=== PATIENT | male | born 1965 | race Caucasian/White ===

== ENCOUNTER 2025-07-02 12:32 | Emergency (ER) | payer OTHER, SELFPAY ==
[2025-07-02] VITALS (15 sets, daily range): BP systolic 107–133; BP diastolic 70–83; PULSE 77–88; TEMP 36.7; O2SAT 92–94; BMI 23.0
--- NOTE | 2025-07-02 12:53 | CT_ITS ---
The [address] [address] Patient Name: AGUSTIN PETTIT MRN: [id number] date: 1965 Sex: M Assigned Patient Location: ED.MAIN Current Patient Location: ED.MAIN Accession/Order Number: [id number] Exam Date: 07/02/2025 13:45 Report Date: 07/02/2025 14:04 At the request of: ALL LOGAN MD Procedure: CT head/brain wo con CT BRAIN WITHOUT CONTRAST: CLINICAL HISTORY: Fall. Hit back of head. COMPARISON: None TECHNIQUE: Contiguous axial unenhanced images were obtained through the brain. This CT exam was performed using one or more following dose reduction techniques: Automated exposure control, adjustment of the mA and/or kV according to patient size, or use of iterative reconstruction technique. FINDINGS: There is no evidence of midline shift, intra or extra-axial fluid collection, hemorrhage or CT evidence of stroke. Cortical atrophy with mild chronic vascular ischemic changes. Posterior fossa appears unremarkable. Visualized intraorbital contents demonstrate no acute findings. Visualized paranasal sinuses are clear. The surrounding soft tissues are normal. CT/CT head/brain wo con IMPRESSION: NO ACUTE INTRACRANIAL ABNORMALITY. Impression dictated by: Kwame Akbar Jr., D.O. 07/02/2025 2:04 PM Dictation Location: [place] [address] Electronically authenticated by: [id number] Y Date: 07/02/2025 14:04
--- NOTE | 2025-07-02 12:54 | ECG_ITS ---
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
[2025-07-02 13:10] LABS: Hematocrit 37.1 % (42.0-54.0); Hemoglobin 12.5 g/dL (14.0-18.0); Immature Granulocytes Abs Auto 0.02 10^3/uL (0.00-0.03); Immature Granulocytes Pct Auto 0.3 % (0.0-0.5); Lymphocytes Absolute Auto 2.0 10^3/uL (1.2-3.8); Mean Corpuscular HGB Conc 33.7 g/dL (29.9-35.2); Mean Corpuscular Hemoglobin 33.3 pg (25.9-34.0); Mean Corpuscular Volume 98.9 fL (80.0-94.0); Platelet Count 167 10^3/uL (150-450); Red Blood Count 3.75 10^6/uL (4.70-6.10); White Blood Count 5.9 10^3/uL (4.0-11.0)
[2025-07-02 13:32] LABS: Alanine Aminotransferase 29 U/L (16-63); Albumin Globulin Ratio 0.7; Albumin Level 3.2 g/dL (3.4-5.0); Alkaline Phosphatase 381 U/L (46-116); Anion Gap 16.4; Aspartate Amino Transferase 52 U/L (15-37); Blood Urea Nitrogen 4.0 mg/dL (7.0-18.0); Calcium 9.8 mg/dL (8.5-10.1); Carbon Dioxide 20.6 mmol/L (21.0-32.0); Chloride 108 mmol/L (98-107); Estimated GFR (African America >60 (>=60 mL/min/1.73m^2); Estimated GFR (Non-African Ame >60 (>=60 mL/min/1.73m^2); Globulin 4.6 g/dL; Glucose 380 mg/dL (74-106); Potassium 3.0 mmol/L (3.5-5.1); Sodium 142 mmol/L (136-145); Total Protein 7.8 g/dL (6.4-8.2)
[2025-07-02 13:34] LABS: Magnesium 1.8 mg/dL (1.8-2.4)
[2025-07-02 14:19] LABS: Glucose Urine UA >=1000 mg/dL (NEGATIVE)
[2025-07-02] MEDS: ACETAMINOPHEN 325 MG TABLET 650 MG PO (14:57)
[2025-07-02] MEDS: POTASSIUM BICARBONATE/CIT 25 MEQ TABLET EFF PO (14:57)
--- NOTE | 2025-07-02 15:01 | ED.DIZZY1 ---
HPI - Dizziness General Chief Complaint: Syncope Stated Complaint: HIGH BLOOD SUGAR Time Seen by Provider: 07/02/25 12:40 Source: patient Mode of arrival: ambulance History of Present Illness HPI Narrative: The patient presented to us from his job after he had a fall there and possible syncope, he remembered that he was working with the [employer] in [employer] he just woke up to find himself on the floor, the patient woke up with a slight headache in the back of his head, the patient denies any nausea vomiting today but he mentioned that he was having some nausea and vomiting yesterday, also had diarrhea The patient did wake up this morning eat had no complaints and that why he went to work He has been compliant with his diabetes medication Related Data Home Medications ?Medication ?Instructions ?Recorded ?Confirmed carvedilol 3.125 mg tablet 3.125 mg PO DAILY 07/02/25 07/02/25 empagliflozin 25 mg tablet 25 mg PO DAILY 07/02/25 07/02/25 (Jardiance) insulin glargine 100 unit/mL 22 unit subcut QPM 07/02/25 07/02/25 subcutaneous cartridge insulin lispro 100 unit/mL 4 unit subcut TID 07/02/25 07/02/25 subcutaneous pen (Humalog KwikPen (U-100) Insulin) lisinopril 10 mg tablet 10 mg PO DAILY 07/02/25 07/02/25 potassium chloride 20 mEq 20 meq PO DAILY 07/02/25 07/02/25 tablet,extended release(part/cryst) Allergies Allergy/AdvReac Type Severity Reaction Status Date / Time No Known Drug Allergies Allergy Verified 07/02/25 12:38 Review of Systems ROS Status of ROS 10 or more systems reviewed and unremarkable except as noted in history and below PFSH PFSH Social History Little interest or pleasure in doing things: not at all Feeling down, depressed, or hopeless: not at all Exam Narrative Exam Narrative: Nurses notes and vital signs reviewed and patient is not hypoxic. General: Well-appearing and in no apparent distress. Skin: Warm, dry, no pallor noted. No rash. Head: Normocephalic, there is an area of tenderness in the posterior aspect of the occipital area almost 2 to 3 cm oval in shape but there is no open wound Neck: Supple, non-tender. Eye: Pupils are equal, round and EOMI. No scleral icterus. Ears, Nose, Mouth, and Throat: TM are clear, no nasal mucosal hypertrophy. Oral mucosa is moist, no posterior oropharynx erythema, uvula is mid-line Cardiovascular: Regular Rate and Rhythm without murmur, gallop or rub. Respiratory: No accessory muscle use or respiratory distress. Lungs are clear to auscultation, no wheezing, rales or rhonchi Chest Wall: no tenderness Back: No midline thoracic or lumbar vertebral tenderness. No CVA tenderness Musculoskeletal: normal ROM, no calf or popliteal tenderness, no lower extremity edema/swelling GI: Abdomen is soft, non-distended. Normal bowel sounds. No masses appreciated. No tenderness to palpation. No rebound, guarding, or rigidity noted. Neurological: A&O x4. No cranial nerve dysfunction observed. No truncal ataxia. Moves Constitutional Vital Signs, click to edit/add: Last Vital Signs Temp 98.0 F 07/02/25 12:35 Pulse 79 07/02/25 14:30 Resp 14 07/02/25 14:30 BP 113/76 07/02/25 14:30 Pulse Ox 92 L 07/02/25 13:40 O2 Del Method Room Air 07/02/25 12:35 Course Vital Signs Vital signs: Vital Signs Temperature 98.0 F 07/02/25 12:35 Pulse Rate 82 07/02/25 12:35 Respiratory Rate 20 07/02/25 12:35 Blood Pressure 133/82 07/02/25 12:35 Pulse Oximetry 93 L 07/02/25 12:35 Oxygen Delivery Method Room Air 07/02/25 12:35 Temperature 98.0 F 07/02/25 12:35 Pulse Rate 79 07/02/25 14:30 Respiratory Rate 14 07/02/25 14:30 Blood Pressure 113/76 07/02/25 14:30 Pulse Oximetry 92 L 07/02/25 13:40 Oxygen Delivery Method Room Air 07/02/25 12:35 MDM - Dizziness MDM Narrative Medical decision making narrative: It was noted that the patient EKG on arrival showing sinus rhythm with a heart rate of [address] elevation or any acute coronary syndrome changes The patient CBC and chemistry showed the patient have hypokalemia which is a chronic problem at the patient take potassium supplement Patient had a anion gap of 14 with elevated blood sugar of 300 Patient was started on IV fluid 1 L after which his blood sugar trending down to [address] The patient had a CT head showing no acute pathology Patient was able to ambulate in the ER with no difficulty He was also found to have elevated blood alcohol with 247 which he admitted that he was drinking last night and this could explain his falling and imbalance issue and the fall Right now the patient will be discharged home with supportive care instruction monitoring symptoms specially with his history of head trauma The patient is to follow up with primary care physician in next 2-3 days or to return to the emergency department should any of the signs or symptoms worsen or new symptoms develop. The patient agrees with the following Diagnosis and Treatment plan and the patient will be discharged home. Lab Data Labs: Lab Results 07/02/25 07/02/25 07/02/25 Range/Units 12:44 13:04 13:55 WBC 5.9 (4.0-11.0) 10^3/uL RBC 3.75 L (4.70-6.10) 10^6/uL Hgb 12.5 L (14.0-18.0) g/dL Hct 37.1 L (42.0-54.0) % MCV 98.9 H (80.0-94.0) fL MCH 33.3 (25.9-34.0) pg MCHC 33.7 (29.9-35.2) g/dL RDW 14.2 (11.0-15.0) % Plt Count 167 (150-450) 10^3/uL MPV 9.3 L (9.5-13.5) fL Neut % (Auto) 54.0 (43.0-75.0) % Lymph % (Auto) 34.2 (20.5-60.0) % [place] % (Auto) 8.3 (1.7-12.0) % Eos % (Auto) 2.0 (0.9-7.0) % Baso % (Auto) 1.2 (0.2-2.0) % Neut # (Auto) 3.2 (1.4-6.5) 10^3/uL Lymph # (Auto) 2.0 (1.2-3.8) 10^3/uL [place] # (Auto) 0.5 (0.3-0.8) 10^3/uL Eos # (Auto) 0.1 (0.0-0.7) 10^3/uL Baso # (Auto) 0.1 (0.0-0.1) 10^3/uL Abs Immat Gran (auto) 0.02 (0.00-0.03) 10^3/uL Imm/Tot Granulo (auto) 0.3 (0.0-0.5) % Sodium 142 (136-145) mmol/L Potassium 3.0 L (3.5-5.1) mmol/L Chloride 108 H (98-107) mmol/L Carbon Dioxide 20.6 L (21.0-32.0) mmol/L Anion Gap 16.4 BUN 4.0 L (7.0-18.0) mg/dL Creatinine 0.81 (0.70-1.30) mg/dL Est GFR ( Amer) >60 (>=60 mL/min/1.73m^2) Est GFR (Non-Af Amer) >60 (>=60 mL/min/1.73m^2) BUN/Creatinine Ratio 4.9 Glucose 380 H (74-106) mg/dL Calcium 9.8 (8.5-10.1) mg/dL Magnesium 1.8 (1.8-2.4) mg/dL Total Bilirubin 0.4 (0.2-1.0) mg/dL AST 52 H (15-37) U/L ALT 29 (16-63) U/L Alkaline Phosphatase 381 H (46-116) U/L Troponin I High Sens 4.7 (4.0-76.1) pg/mL Total Protein 7.8 (6.4-8.2) g/dL Albumin 3.2 L (3.4-5.0) g/dL Globulin 4.6 g/dL Albumin/Globulin Ratio 0.7 Urine Color Lt. yellow (YELLOW) Urine Clarity Clear (CLEAR) Urine pH 6.5 (5.0-9.0) Ur Specific Commerce 1.010 (1.005-1.025) Urine Protein Negative (NEG/TRACE) mg/dL Urine Glucose (UA) >=1000 A (NEGATIVE) mg/dL Urine Ketones Negative (NEGATIVE) mg/dL Urine Occult Blood Negative (NEGATIVE) Urine Nitrite Negative (NEGATIVE) Urine Bilirubin Negative (NEGATIVE) Urine Urobilinogen 0.2 (0.2-1.0) EU/dL Ur Leukocyte Esterase Negative (NEGATIVE) Ethanol Quant 247 mg/dL POC Glucose 340 H (74-106) mg/dL 07/02/25 Range/Units 14:36 WBC (4.0-11.0) 10^3/uL RBC (4.70-6.10) 10^6/uL Hgb (14.0-18.0) g/dL Hct (42.0-54.0) % MCV (80.0-94.0) fL MCH (25.9-34.0) pg MCHC (29.9-35.2) g/dL RDW (11.0-15.0) % Plt Count (150-450) 10^3/uL MPV (9.5-13.5) fL Neut % (Auto) (43.0-75.0) % Lymph % (Auto) (20.5-60.0) % [place] % (Auto) (1.7-12.0) % Eos % (Auto) (0.9-7.0) % Baso % (Auto) (0.2-2.0) % Neut # (Auto) (1.4-6.5) 10^3/uL Lymph # (Auto) (1.2-3.8) 10^3/uL [place] # (Auto) (0.3-0.8) 10^3/uL Eos # (Auto) (0.0-0.7) 10^3/uL Baso # (Auto) (0.0-0.1) 10^3/uL Abs Immat Gran (auto) (0.00-0.03) 10^3/uL Imm/Tot Granulo (auto) (0.0-0.5) % Sodium (136-145) mmol/L Potassium (3.5-5.1) mmol/L Chloride (98-107) mmol/L Carbon Dioxide (21.0-32.0) mmol/L Anion Gap BUN (7.0-18.0) mg/dL Creatinine (0.70-1.30) mg/dL Est GFR ( Amer) (>=60 mL/min/1.73m^2) Est GFR (Non-Af Amer) (>=60 mL/min/1.73m^2) BUN/Creatinine Ratio Glucose (74-106) mg/dL Calcium (8.5-10.1) mg/dL Magnesium (1.8-2.4) mg/dL Total Bilirubin (0.2-1.0) mg/dL AST (15-37) U/L ALT (16-63) U/L Alkaline Phosphatase (46-116) U/L Troponin I High Sens (4.0-76.1) pg/mL Total Protein (6.4-8.2) g/dL Albumin (3.4-5.0) g/dL Globulin g/dL Albumin/Globulin Ratio Urine Color (YELLOW) Urine Clarity (CLEAR) Urine pH (5.0-9.0) Ur Specific Commerce (1.005-1.025) Urine Protein (NEG/TRACE) mg/dL Urine Glucose (UA) (NEGATIVE) mg/dL Urine Ketones (NEGATIVE) mg/dL Urine Occult Blood (NEGATIVE) Urine Nitrite (NEGATIVE) Urine Bilirubin (NEGATIVE) Urine Urobilinogen (0.2-1.0) EU/dL Ur Leukocyte Esterase (NEGATIVE) Ethanol Quant mg/dL POC Glucose 249 H (74-106) mg/dL Discharge Plan Discharge Chief Complaint: Syncope Clinical Impression: Dehydration, Fall, Hyperglycemia, Head trauma, Hypokalemia Patient Disposition: Home, Self-Care Time of Disposition Decision: 14:45 Condition: Good Prescriptions / Home Meds: No Action insulin lispro [Humalog KwikPen Insulin] 100 unit/mL insulin pen 4 unit subcut TID insulin glargine 100 unit/mL cartridge 22 unit subcut QPM Jardiance 25 mg tablet 25 mg PO DAILY lisinopril 10 mg tablet 10 mg PO DAILY carvedilol 3.125 mg tablet 3.125 mg PO DAILY Rx Instructions: must administer with a meal/food potassium chloride 20 mEq tablet,ER particles/crystals 20 meq PO DAILY Print Language: Azeri Instructions: Head Injury (DC), Diabetic Hyperglycemia (ED) Referrals: ALEXANDRA DIAZ [Primary Care Provider, Family Practice] - 1 week Discharge Date/Time: 07/02/25 15:07
== END 2025-07-02 15:07 | disposition home or self-care (01) ==
PROVIDERS: Emergency Provider Emergency Medicine
DX: E86.0 Dehydration (principal); R73.9 Hyperglycemia, unspecified; E87.6 Hypokalemia; S09.90XA Unspecified injury of head, initial encounter; W18.39XA Other fall on same level, initial encounter
CPT/HCPCS: 36415; 70450; 80053; 80320; 81003; 82948; 83735; 84484; 85025; 93005; 99285